=== PATIENT | female | born 2000 | race Caucasian/White ===

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

== ENCOUNTER 2020-05-17 01:00 | Emergency (ER) | payer SELFPAY ==
[~2020-05-17] VITALS: Ht 170.2 cm; Wt 86.4 kg
[~2020-05-17 01:00] MED LIST: BACTRIM 400-801 TAB PO
[2020-05-17 01:04] VITALS: Ht 170.2 cm; Wt 86.4 kg
[2020-05-17 02:00] LABS: BASOPHILS 0.1 % (0-2); EOSINOPHILS 1.4 % (0-7); HEMATOCRIT 44.4 % (36.0-48.0); HEMOGLOBIN 14.5 g/dL (12-16); IMMATURE GRANULOCYTES 0.4 % (0-5); LYMPHOCYTES 24.6 % (15-50); MCH 27.8 pg (26.0-34.0); MCHC 32.7 g/dL (31.0-37.0); MCV 85.2 fL (80.0-100.0); MEAN PLATELET VOLUME 10.7 fL (7.4-10.4); MONOCYTES 7.3 % (2-11); NEUTROPHILS 66.2 % (40-80); PLATELET COUNT 304 10x3/uL (130-400); RBC 5.21 10x6/uL (4.00-5.40); RDW 13.4 % (11.5-14.5); WBC 13.9 10x3/uL (4.8-10.8)
[2020-05-17 02:03] LABS: HCG URINE NEGATIVE (NEGATIVE)
[2020-05-17 02:04] LABS: BILIRUBIN NEGATIVE (NEGATIVE); GLUCOSE NEGATIVE (NEGATIVE); KETONE NEGATIVE (NEGATIVE); NITRITE NEGATIVE (NEGATIVE); UROBILINOGEN NORMAL (NORMAL)
[2020-05-17 02:05] LABS: EPITHELIAL CELLS 0-5 /hpf (0-5); RED CELLS - URINE 0-5 /hpf (0-5); WHITE CELLS - URINE 0-5 /hpf (NEGATIVE)
[2020-05-17 02:06] LABS: BACTERIA MODERATE /hpf (NEGATIVE)
[2020-05-17 02:13] LABS: CALC OSMOLALITY 271 mosm/kg (275-300); CALCIUM 8.5 mg/dL (8.5-10.1); CARBON DIOXIDE 30.6 mmol/L (21.0-32.0); CHLORIDE - SERUM 102 mmol/L (98-107); CREATININE - SERUM 0.8 mg/dL (0.6-1.3); GLUCOSE 86 mg/dL (74-106); POTASSIUM - SERUM 3.4 mmol/L (3.5-5.1); SODIUM 137 mmol/L (136-145); UREA NITROGEN 10 mg/dL (7-18); eGFR NON AFRICAN AMERICAN > 90 mL/min (90-120)
[2020-05-17 02:26] LABS: ALBUMIN 3.9 g/dL (3.4-5.0); ALKALINE PHOSPHATASE 81 U/L (30-120); ALT (SGPT) 26 U/L (10-68); BILIRUBIN - TOTAL 0.28 mg/dL (0.2-1.3); C-REACTIVE PROTEIN 1.7 mg/dL (0.0-0.9); PRO BNP 66 pg/mL (0-125)
[2020-05-17 03:09] VITALS: BP 103/61
== END 2020-05-17 03:10 | disposition home or self-care (01) ==
LOC: D.ER 01:00
PROVIDERS: Family Medicine
DX: R06.02 Shortness of breath (principal); U07.1 COVID-19